=== PATIENT | male | born 1975 | race Hispanic/Latino ===

== ENCOUNTER 2023-02-25 08:57 | Emergency (ER) | payer SELFPAY ==
[~2023-02-25] VITALS: Ht 170.2 cm; Wt 89.9 kg
[2023-02-25 09:03] VITALS: BP 128/83
[2023-02-25 09:12] VITALS: BP 125/77
[2023-02-25 09:15] VITALS: BP 120/75
[2023-02-25] MEDS ORDERED: MELOXICAM7.5 MG PO (09:53)
[2023-02-25] MEDS ORDERED: MEDROL DOSEPAK4 MG PO (09:53)
[2023-02-25 10:59] VITALS: BP 108/68
[2023-02-25 11:00] VITALS: BP 114/69
[2023-02-25 11:01] VITALS: BP 114/69
== END 2023-02-25 11:04 | disposition home or self-care (01) | DRG 563 ==
LOC: ED 08:57
DX: S39.012A Strain of muscle, fascia and tendon of lower back, initial encounter (principal); X50.0XXA Overexertion from strenuous movement or load, initial encounter; Y93.H2 Activity, gardening and landscaping; Y99.0 Civilian activity done for income or pay